=== PATIENT | male | born 1935 | race African-American/Black ===

== ENCOUNTER 2017-03-27 01:49 | Emergency (ER) | payer MEDICARE ==
[~2017-03-27] VITALS: Ht 175.3 cm; Wt 94.8 kg
[2017-03-27 02:10] VITALS: BP 129/73
--- NOTE | 2017-03-27 02:26 | Emergency Room Report ---
History of Present Illness General Chief Complaint: Male Urogenital Problems Source: Patient, EMS (Jonathan Bentley M.D.) Present Illness HPI The patient presents not been able to urinate. He states that this began earlier in the afternoon but became more severe at 11:00 PM. He states he's had his prostate checked at urgent care with blood work and never has needed a urinary catheter. He denies any fevers, nausea, vomiting, diarrhea, constipation. He claims that he is on medication for his prostate. Also is being treated for high blood pressure. He denies pain, but is uncomfortable feeling the need to urinate. He drinks beer occasionally. He feels that this might have contributed. No chest pain, chills, NVD, joint pain, REYNOLDS. (Jonathan Bentley M.D.) Allergies: Coded Allergies: No Known Allergies (Unverified , 03/27/17) Patient History Past Medical History: see triage record Social History: Reports: alcohol use Social History Narrative at home Reviewed Nursing Documentation: PMH: Agreed, PSxH: Agreed (Jonathan Bentley M.D.) Nursing Documentation-PMH Hx Hypertension: Yes Hx Diabetes: Yes Hx Gastrointestinal Problems: Yes - PROSTATE PROBLEM (Jonathan Bentley M.D.) Review of Systems All Other Systems: negative except mentioned in HPI (Jonathan Bentley M.D.) Physical Exam Vital Signs Date Time Temp Pulse Resp B/P Pulse Ox O2 Delivery O2 Flow Rate FiO2 03/27/17 01:44 99.1 120 18 218/90 98 Room Air Sp02 EP Interpretation: reviewed, normal General Appearance: well appearing, GCS 15, mild distress Head: normocephalic Eyes: bilateral eye PERRL, bilateral eye normal inspection ENT: moist mucus membranes Neck: supple Respiratory: lungs clear, normal breath sounds Cardiovascular #1: regular rate, rhythm Cardiovascular #2: 2+ radial (R) Gastrointestinal: normal inspection, normal bowel sounds, soft, non-distended, other - bladder palpable and slightly tender Genitourinary: penis normal Musculoskeletal: back normal, gait/station normal, normal range of motion Neurologic: alert, oriented x3, grossly normal Psychiatric: mood/affect normal Skin: normal inspection, warm/dry (Jonathan Bentley M.D.) Medical Decision Making Diagnostic Impression: Primary Impression: Urinary retention Additional Impressions: Leukocytosis Qualified Codes: D72.829 - Elevated white blood cell count, unspecified UTI (urinary tract infection) Qualified Codes: N30.00 - Acute cystitis without hematuria ER Course The patient presents with suprapubic pain and inability to urinate. Differential includes UTI, prostatic hypertrophy, urinary retention amongst others. Evaluation with IV labs urinalysis. Treatment with IV hydration and pain control and if urine infected possibly antibiotics. Also a gutierres will be passed. Urinalysis reveals nitrites and 2-4 white cells. In this clinical setting this is suggestive of a urinary tract infection. His white count is 20,000. Antibiotics are begun. The patient had 400 mls of urine when gutierres was passed. The patient is improved after pain meds and after antibiotics are begun. The patient was discussed with Nikolai and accepted for reevaluation the [facility] emergency department. Patient febrile and tachycardic. Tylenol and saline given. Laboratory Tests Test 03/27/17 02:15 03/27/17 03:00 White Blood Count 20.0 K/UL (4.8-10.8) H Red Blood Count 4.60 M/UL (4.70-6.10) L Hemoglobin 14.1 G/DL (14.2-18.0) L Hematocrit 42.4 % (42.0-52.0) Mean Corpuscular Volume 92 FL (80-99) Mean Corpuscular Hemoglobin 30.7 PG (27.0-31.0) Mean Corpuscular Hemoglobin Concent 33.3 G/DL (32.0-36.0) Red Cell Distribution Width 12.9 % (11.6-14.8) Platelet Count 239 K/UL (150-450) Mean Platelet Volume 7.7 FL (6.5-10.1) Neutrophils (%) (Auto) % (45.0-75.0) Lymphocytes (%) (Auto) % (20.0-45.0) Monocytes (%) (Auto) % (1.0-10.0) Eosinophils (%) (Auto) % (0.0-3.0) Basophils (%) (Auto) % (0.0-2.0) Neutrophils % (Manual) Pending Lymphocytes % (Manual) Pending Platelet Estimate Pending Platelet Morphology Pending Urine Color Pale yellow Urine Appearance Clear Urine pH 5 (4.5-8.0) Urine Specific Felt 1.015 (1.005-1.035) Urine Protein 2+ (NEGATIVE) H Urine Glucose (UA) Negative (NEGATIVE) Urine Ketones Negative (NEGATIVE) Urine Occult Blood 5+ (NEGATIVE) H Urine Nitrite Positive (NEGATIVE) H Urine Bilirubin Negative (NEGATIVE) Urine Urobilinogen Normal MG/DL (0.0-1.0) Urine Leukocyte Esterase Negative (NEGATIVE) Urine RBC 10-15 /HPF (0 - 0) H Urine WBC 2-4 /HPF (0 - 0) Urine Squamous Epithelial Cells Occasional /LPF Urine Bacteria Moderate /HPF (NONE) H Sodium Level 137 mEQ/L (135-145) Potassium Level 4.3 mEQ/L (3.4-4.9) Chloride Level 94 mEQ/L (98-107) L Carbon Dioxide Level 24 mEQ/L (20-30) Anion Gap 19 (5-15) H Blood Urea Nitrogen 19 mg/dL (7-23) Creatinine 1.2 mg/dL (0.7-1.2) Estimate Glomerular Filtration Rate mL/min (>60) Glucose Level 211 mg/dL (74-106) H Calcium Level 9.5 mg/dL (8.6-10.2) Total Bilirubin 0.8 mg/dL (0.0-1.2) Aspartate Amino Transferase (AST) 49 U/L (5-40) H Alanine Aminotransferase (ALT) 32 U/L (3-41) Alkaline Phosphatase 100 U/L (40-129) Total Protein 7.4 g/dL (6.6-8.7) Albumin 4.1 g/dL (3.5-5.2) Globulin 3.3 g/dL Albumin/Globulin Ratio 1.2 (1.0-2.7) Lactic Acid Level 1.70 mmol/L (0.66-2.22) (Jonathan Bentley M.D.) ER Course Patient was noted to have positive blood cultures with gram-negative organism. The patient had been transferred to [facility]. The results were transmitted to [facility] for further treatment. (Randolph Anderson) Rhythm Strip Diag. Results EP Interpretation: yes Rhythm: NSR, no PVC's, no ectopy, other - rate 94 (Jonathan Bentley M.D.) Last Vital Signs Date Time Temp Pulse Resp B/P Pulse Ox O2 Delivery O2 Flow Rate FiO2 5/8/17 09:11 98.8 101 35 144/84 98 Room Air Status: improved (Jonathan Bentley M.D.) Disposition: ER [facility] Condition: Serious - but stable for transfer Jonathan Bentley M.D. March 27, 2017 02:26 Randolph Anderson March 28, 2017 06:40
[2017-03-27 02:34] LABS: MEAN CORPUSCULAR HEMOGLOBIN 30.7 PG (27.0-31.0); MEAN CORPUSCULAR HGB CONC 33.3 G/DL (32.0-36.0); MEAN CORPUSCULAR VOLUME 92 FL (80-99); MEAN PLATELET VOLUME 7.7 FL (6.5-10.1); PLATELET COUNT 239 K/UL (150-450); RED CELL DISTRIBUTION WIDTH 12.9 % (11.6-14.8)
[2017-03-27 02:42] LABS: APPEARANCE,URINE CLEAR; KETONES,URINE NEGATIVE (NEGATIVE); LEUKOCYTE ESTERASE ,URINE NEGATIVE (NEGATIVE); NITRITE,URINE POSITIVE (NEGATIVE); PH,URINE 5 (4.5-8.0); PROTEIN,URINE 2+ (NEGATIVE); UROBILINOGEN,URINE NORMAL MG/DL (0.0-1.0)
[2017-03-27 02:50] LABS: ALANINE AMINOTRANSFERASE 32 U/L (3-41); ALBUMIN/GLOBULIN RATIO 1.2 (1.0-2.7); ANION GAP 19 (5-15); ASPARTATE AMINO TRANSFERASE 49 U/L (5-40); CALCIUM 9.5 mg/dL (8.6-10.2); CARBON DIOXIDE 24 mEQ/L (20-30); CHLORIDE 94 mEQ/L (98-107); CREATININE 1.2 mg/dL (0.7-1.2); HEMOLYSIS 3; POTASSIUM 4.3 mEQ/L (3.4-4.9); SODIUM 137 mEQ/L (135-145); TOTAL PROTEIN 7.4 g/dL (6.6-8.7)
[2017-03-27] MEDS ORDERED: Piperacillin/Tazobactam 3.375 GM in NS 110 ML IVPB ONE (03:00)
[2017-03-27 03:03] LABS: BACTERIA,URINE MODERATE /HPF; SQUAMOUS EPITHELIAL CELL,UR OCCASIONAL /LPF (NONE/OCC)
[2017-03-27] MEDS ORDERED: Zosyn 3.375gm inj ONE (03:17)
[2017-03-27 04:50] VITALS: BP 123/65
[2017-03-27 07:18] VITALS: BP 171/82
[2017-03-27 08:13] VITALS: BP 144/84
[2017-03-27 08:35] LABS: LYMPHOCYTES % (MANUAL) 8 % (20-45); NEUTROPHILS % (MANUAL) 87 % (45-75); TOTAL CELLS COUNTED 100
[2017-03-27 08:36] LABS: BAND NEUTROPHILS % (MANUAL) 0 % (0-8); BASOPHILS % (MANUAL) 0 % (0-2); EOSINOPHILS % (MANUAL) 0 % (0-3); PLATELET ESTIMATE ADEQUATE; PLATELET MORPHOLOGY NORMAL
[2017-03-27 08:41] VITALS: BP 144/84
[2017-03-27 09:11] VITALS: BP 144/84
== END 2017-03-27 08:45 | disposition short-term general hospital (02) ==
LOC: ENRESERVTM → ENRESERVDT → EDBD 01:49 → EMR 03:11
DX: R33.9 Retention of urine, unspecified (principal); D72.829 Elevated white blood cell count, unspecified; N30.00 Acute cystitis without hematuria; I10 Essential (primary) hypertension; E11.9 Type 2 diabetes mellitus without complications; R50.9 Fever, unspecified; R00.2 Palpitations
CPT/HCPCS: 36415; 80053; 81003; 83605; 85007; 85025; 87040; 87086; 87181; 96374; 96375; 99285; J2543